=== PATIENT | male | born 1965 | race Caucasian/White ===

== ENCOUNTER → 2016-08-02 | Outpatient (REF) | payer BC ==
[2016-08-02 13:32] LABS: ALBUMIN 3.9 GM/DL (3.2-5.2); ALBUMIN/GLOBULIN RATIO 1.18 (1.00-1.93); ALKALINE PHOSPHATASE 123 U/L (45-117); ALT/SGPT 65 U/L (12-78); ANION GAP 10 MEQ/L (8-16); AST/SGOT 33 U/L (15-37); BILIRUBIN,TOTAL 1.1 MG/DL (0.2-1.0); BLOOD UREA NITROGEN 14 MG/DL (7-18); CALCIUM LEVEL 8.9 MG/DL (8.5-10.1); CARBON DIOXIDE LEVEL 26 MEQ/L (21-32); CHLORIDE LEVEL 107 MEQ/L (98-107); CREATININE FOR GFR 0.94 MG/DL (0.70-1.30); GLOMERULAR FILTRATION RATE > 60.0 (>56); GLUCOSE, FASTING 105 MG/DL (70-105); POTASSIUM SERUM 4.3 MEQ/L (3.5-5.1); SODIUM LEVEL 143 MEQ/L (136-145); TOTAL PROTEIN 7.2 GM/DL (6.4-8.2)
[2016-08-02 13:39] LABS: BASO % 0.3 % (0.0-1.0); EOS # 0.1 K/mm3 (0.0-0.50); EOS % 0.6 % (0.0-3.0); LARGE UNSTAINED CELL # 0.2 K/mm3 (0.0-0.4); LARGE UNSTAINED CELL % 1.3 % (0.0-4.0); LYMPH # 1.9 K/mm3 (1.5-4.5); LYMPH % 14.9 % (24.0-44.0); MEAN CORPUSCULAR HEMOGLOBIN 30.9 pg (27.0-33.0); MEAN CORPUSCULAR HGB CONC 33.6 g/dl (32.0-36.5); MEAN CORPUSCULAR VOLUME 92.1 fl (80.0-96.0); MONO # 0.8 K/mm3 (0.0-0.8); NEUTROPHILS # 8.8 K/mm3 (1.8-7.7); PLATELET COUNT, AUTOMATED 200 k/mm3 (150-450); RED CELL DISTRIBUTION WIDTH 12.4 % (11.5-14.5); WHITE BLOOD COUNT 11.6 K/mm3 (4.0-10.0)
== END ==
LOC: M SFHCPLAZ 08:31
PROVIDERS: ATTEND Family Medicine
DX: I10 Essential (primary) hypertension (principal); R73.01 Impaired fasting glucose; N40.2 Nodular prostate without lower urinary tract symptoms; Z12.5 Encounter for screening for malignant neoplasm of prostate

== ENCOUNTER → 2017-04-22 | Outpatient (REF) | payer BC ==
[2017-04-22 13:17] LABS: ALBUMIN 3.9 GM/DL (3.2-5.2); ALBUMIN/GLOBULIN RATIO 1.18 (1.00-1.93); ALKALINE PHOSPHATASE 109 U/L (45-117); ALT/SGPT 67 U/L (12-78); ANION GAP 8 MEQ/L (8-16); AST/SGOT 24 U/L (7-37); BILIRUBIN,TOTAL 0.9 MG/DL (0.2-1.0); BLOOD UREA NITROGEN 20 MG/DL (7-18); CALCIUM LEVEL 9.2 MG/DL (8.5-10.1); CARBON DIOXIDE LEVEL 27 MEQ/L (21-32); CHLORIDE LEVEL 106 MEQ/L (98-107); CHOLESTEROL LEVEL 162 MG/DL (<200); CREATININE FOR GFR 0.87 MG/DL (0.70-1.30); GLOMERULAR FILTRATION RATE > 60.0 (>56); GLUCOSE, FASTING 93 MG/DL (70-105); POTASSIUM SERUM 4.5 MEQ/L (3.5-5.1); SODIUM LEVEL 141 MEQ/L (136-145); TOTAL PROTEIN 7.2 GM/DL (6.4-8.2); TRIGLYCERIDES LEVEL 251 MG/DL (<150)
== END ==
LOC: M SFHCPLAZ 08:57
PROVIDERS: ATTEND Family Medicine
DX: E78.5 Hyperlipidemia, unspecified (principal); R73.01 Impaired fasting glucose

== ENCOUNTER → 2017-10-11 | Outpatient (REF) | payer BC ==
[2017-10-11 12:16] LABS: APPEARANCE, URINE CLEAR (CLEAR); BACTERIA, URINE AUTO NEGATIVE (NEGATIVE); BILIRUBIN, URINE AUTO NEGATIVE (NEGATIVE); BLOOD, URINE BLOOD 1+ (NEGATIVE); COLOR, URINE YELLOW (YELLOW); GLUCOSE, URINE (UA) AUTO NEGATIVE (NEGATIVE); KETONE, URINE AUTO NEGATIVE (NEGATIVE); LEUKOCYTE ESTERASE, URINE AUTO NEGATIVE (NEGATIVE); MUCUS, URINE SMALL (NEGATIVE); NITRITE, URINE AUTO NEGATIVE (NEGATIVE); PROTEIN, URINE AUTO NEGATIVE (NEGATIVE); RBC, URINE AUTO 1 /HPF (0-3); SPECIFIC GRAVITY URINE AUTO 1.018 (1.002-1.035); SQUAMOUS EPITHELIAL CELL UR AU 0 /HPF (0-6); UROBILINOGEN, URINE AUTO 0.2 mg/dL (0.0-2.0); WBC, URINE AUTO 1 /HPF (0-3)
[2017-10-11 12:56] LABS: PTH INTACT 34.2 PG/ML (18.5-88.0); TOTAL 25(OH) VITAMIN D 45.5 NG/ML (30.0-100.0)
[2017-10-11 13:09] LABS: ALBUMIN/GLOBULIN RATIO 1.25 (1.00-1.93); ALKALINE PHOSPHATASE 86 U/L (45-117); ALT/SGPT 36 U/L (12-78); ANION GAP 10 MEQ/L (8-16); AST/SGOT 14 U/L (7-37); BILIRUBIN,TOTAL 0.7 MG/DL (0.2-1.0); BLOOD UREA NITROGEN 19 MG/DL (7-18); CALCIUM LEVEL 8.8 MG/DL (8.5-10.1); CARBON DIOXIDE LEVEL 24 MEQ/L (21-32); CHLORIDE LEVEL 107 MEQ/L (98-107); CREATININE FOR GFR 0.89 MG/DL (0.70-1.30); GLOMERULAR FILTRATION RATE > 60.0 (>56); GLUCOSE, FASTING 83 MG/DL (70-100); MAGNESIUM LEVEL 2.4 MG/DL (1.8-2.4); POTASSIUM SERUM 4.1 MEQ/L (3.5-5.1); PSA SCREENING 0.45 NG/ML (< 4.0); SODIUM LEVEL 141 MEQ/L (136-145); TOTAL PROTEIN 7.2 GM/DL (6.4-8.2)
[2017-10-11 13:15] LABS: MALB URINE SIEMENS 31.2 MG/L; MAU/CREAT RATIO 22.6 MCG/MG (0.0-30.0)
[2017-10-11 13:35] LABS: ESTIMATED AVERAGE GLUCOSE 120 MG/DL (60-110); HEMOGLOBIN A1c 5.8 %
[2017-10-12 14:10] LABS: INSULIN LEVEL 19.8 uIU/mL (2.6-24.9)
== END ==
LOC: M SFHCPLAZ 11:05
DX: I10 Essential (primary) hypertension (principal); R73.01 Impaired fasting glucose; Z12.5 Encounter for screening for malignant neoplasm of prostate; E55.9 Vitamin D deficiency, unspecified
CPT/HCPCS: 83525

== ENCOUNTER → 2018-04-25 | Outpatient (REF) | payer BC ==
[2018-04-25 12:36] LABS: ALBUMIN/GLOBULIN RATIO 1.43 (1.00-1.93); ALKALINE PHOSPHATASE 89 U/L (45-117); ALT/SGPT 31 U/L (12-78); ANION GAP 7 MEQ/L (8-16); AST/SGOT 15 U/L (7-37); BILIRUBIN,TOTAL 0.7 MG/DL (0.2-1.0); BLOOD UREA NITROGEN 21 MG/DL (7-18); CALCIUM LEVEL 8.9 MG/DL (8.5-10.1); CARBON DIOXIDE LEVEL 26 MEQ/L (21-32); CHLORIDE LEVEL 107 MEQ/L (98-107); CREATININE FOR GFR 0.85 MG/DL (0.70-1.30); GLOMERULAR FILTRATION RATE > 60.0 (>56); GLUCOSE, FASTING 93 MG/DL (70-100); POTASSIUM SERUM 4.3 MEQ/L (3.5-5.1); SODIUM LEVEL 140 MEQ/L (136-145); TOTAL PROTEIN 6.8 GM/DL (6.4-8.2)
[2018-04-25 13:24] LABS: ESTIMATED AVERAGE GLUCOSE 120 MG/DL (60-110); HEMOGLOBIN A1c 5.8 %
[2018-04-26 14:13] LABS: INSULIN LEVEL 15.5 uIU/mL (2.6-24.9)
== END ==
LOC: M SFHCPLAZ 08:53
DX: R73.01 Impaired fasting glucose (principal)
CPT/HCPCS: 83525

== ENCOUNTER → 2018-05-26 | Outpatient (CLI) | payer BC ==
--- NOTE | 2018-05-27 04:26 | REP ---
Clinical: Gallstone. Comparison: 05/17/2016. Technique: Martins scale ultrasound using curved array transducer. Findings: The liver is diffusely increased echogenicity with poor through transmission suggesting fatty infiltration. No focal hepatic lesion identified. The pancreas is incompletely evaluated due to interposed bowel gas but visualized portions appear normal. Gallbladder demonstrates multiple gallstones at the neck of the gallbladder without wall thickening or pericholecystic fluid. No sonographic Reese's sign was elicited. No biliary ductal dilatation is appreciated, and the common bile duct measures 5.6 mm diameter. The right kidney is normal in reniform shape without hydronephrosis and measures 12.2 x 5.4 x 4.2 cm. No ascites. Visualized portions of the abdominal aorta normal. Impression: 1. Gallstones at the gallbladder neck without sonographic evidence for acute cholecystitis. 2. Hepatic steatosis. Electronically Signed by Jered Roque MD 05/27/2018 04:17 A
== END ==
LOC: M RAD 07:26
PROVIDERS: ATTEND Family Medicine
DX: K80.20 Calculus of gallbladder without cholecystitis without obstruction (principal)

== ENCOUNTER → 2018-10-16 | Outpatient (REF) | payer OTHER ==
[2018-10-16 13:05] LABS: APPEARANCE, URINE HAZY (CLEAR); BACTERIA, URINE AUTO 1+ (NEGATIVE); BILIRUBIN, URINE AUTO NEGATIVE (NEGATIVE); BLOOD, URINE BLOOD 1+ (NEGATIVE); COLOR, URINE YELLOW (YELLOW); GLUCOSE, URINE (UA) AUTO NEGATIVE (NEGATIVE); KETONE, URINE AUTO NEGATIVE (NEGATIVE); LEUKOCYTE ESTERASE, URINE AUTO NEGATIVE (NEGATIVE); MUCUS, URINE SMALL (NEGATIVE); NITRITE, URINE AUTO NEGATIVE (NEGATIVE); PROTEIN, URINE AUTO NEGATIVE (NEGATIVE); RBC, URINE AUTO 3 /HPF (0-3); SPECIFIC GRAVITY URINE AUTO 1.015 (1.002-1.035); SQUAMOUS EPITHELIAL CELL UR AU 0 /HPF (0-6); UROBILINOGEN, URINE AUTO 0.2 mg/dL (0.0-2.0); WBC, URINE AUTO 6 /HPF (0-3)
[2018-10-16 13:07] LABS: BASO # 0.1 10^3/uL (0.0-0.2); BASO % 0.6 % (0.0-1.0); EOS # 0.1 10^3/uL (0.0-0.50); EOS % 1.1 % (0.0-3.0); HEMATOCRIT 43.9 % (42.0-52.0); HEMOGLOBIN 14.7 g/dl (13.5-17.5); LYMPH # 2.2 10^3/uL (1.5-4.5); LYMPH % 28.1 % (24.0-44.0); MEAN CORPUSCULAR HEMOGLOBIN 31.5 pg (27.0-33.0); MEAN CORPUSCULAR HGB CONC 33.5 g/dl (32.0-36.5); MONO # 0.7 10^3/uL (0.0-0.8); MONO % 8.2 % (0.0-5.0); NEUTROPHILS # 4.9 10^3/uL (1.8-7.7); NEUTROPHILS % 61.5 % (36.0-66.0); PLATELET COUNT, AUTOMATED 210 10^3/uL (150-450); RED BLOOD COUNT 4.67 10^6/uL (4.30-6.10); WHITE BLOOD COUNT 7.9 10^3/uL (4.0-10.0)
[2018-10-16 13:21] LABS: HEMOGLOBIN A1c 5.7 %
[2018-10-16 13:45] LABS: ALT/SGPT 78 U/L (12-78); BILIRUBIN,TOTAL 0.7 MG/DL (0.2-1.0); BLOOD UREA NITROGEN 17 MG/DL (7-18); CALCIUM LEVEL 9.3 MG/DL (8.5-10.1); CARBON DIOXIDE LEVEL 25 MEQ/L (21-32); CHLORIDE LEVEL 107 MEQ/L (98-107); CHOLESTEROL LEVEL 174 MG/DL (<200); CHOLESTEROL RISK RATIO 3.782 (<5); CREATININE FOR GFR 0.84 MG/DL (0.70-1.30); FREE T4 0.95 NG/DL (0.76-1.46); GLOMERULAR FILTRATION RATE > 60.0 (>56); GLUCOSE, FASTING 91 MG/DL (70-100); HDL CHOLESTEROL 46 MG/DL (>40); LDL CHOLESTEROL 82 MG/DL (<100); NON-HDL-C 128 MG/DL; POTASSIUM SERUM 3.9 MEQ/L (3.5-5.1); SODIUM LEVEL 140 MEQ/L (136-145); TOTAL PROTEIN 6.9 GM/DL (6.4-8.2); TRIGLYCERIDES LEVEL 230 MG/DL (<150)
[2018-10-16 14:03] LABS: MALB URINE SIEMENS 22.1 MG/L; MAU/CREAT RATIO 19.5 MCG/MG (0.0-30.0)
== END ==
LOC: M LABSMT 08:34
PROVIDERS: ATTEND Nurse Practitioner Women's Health
DX: Z12.5 Encounter for screening for malignant neoplasm of prostate (principal); I10 Essential (primary) hypertension; E78.5 Hyperlipidemia, unspecified; R73.01 Impaired fasting glucose
CPT/HCPCS: 36415; 80053; 80061; 81001; 82043; 83036; 84439; 84443; 85025; G0103

== ENCOUNTER → 2018-11-03 | Outpatient (CLI) | payer OTHER ==
--- NOTE | 2018-11-03 16:28 | REP ---
Thoracic spine three views: Vertebral body heights and alignment are normal. There is moderate degenerative disc disease throughout the thoracic spine. The pedicles are unremarkable. Impression: Moderate multilevel degenerative disc disease. Electronically Signed by Clarence Regalado MD 11/03/2018 04:20 P
--- NOTE | 2018-11-03 16:34 | REP ---
Lumbar spine seven views, including flexion and extension views: There is mild scoliosis convex right. 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 There is partial sacralization of the L6 segment with a pseudoarticulation of the left transverse process. The liver. There is spina bifida occulta of L6. Vertebral body heights and alignment are normal. There is no spondylolysis. There is no spondylolisthesis. There is no listhesis on the flexion and extension views. There is mild degenerative disc disease at L1-2 and at L5-6. The disc spaces are otherwise unremarkable. There are abdominal right upper quadrant calcifications, likely gallbladder calculi. 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 There is partial sacralization of the L6 segment as described. Spina bifida occulta of L6. Mild scoliosis convex right. Mild degenerative disc disease at L1-2 and L5-6. Right upper quadrant abdominal calcifications, likely gallbladder calculi. Electronically Signed by Clarence Regalado MD 11/03/2018 04:26 P
== END ==
LOC: M RAD 15:32
PROVIDERS: ATTEND Family Medicine
DX: Q05.7 Lumbar spina bifida without hydrocephalus (principal); M51.36 Other intervertebral disc degeneration, lumbar region; M51.34 Other intervertebral disc degeneration, thoracic region

== ENCOUNTER → 2019-04-24 | Outpatient (REF) | payer OTHER ==
[2019-04-24 11:39] LABS: BASO % 0.5 % (0.0-1.0); EOS # 0.1 10^3/uL (0.0-0.5); EOS % 1.5 % (0.0-3.0); HEMATOCRIT 45.2 % (42.0-52.0); HEMOGLOBIN 15.2 g/dl (13.5-17.5); MEAN CORPUSCULAR HEMOGLOBIN 31.3 pg (27.0-33.0); MEAN CORPUSCULAR HGB CONC 33.6 g/dl (32.0-36.5); MONO # 0.5 10^3/uL (0.0-0.8); MONO % 6.3 % (0.0-5.0); NEUTROPHILS # 4.8 10^3/uL (1.5-8.5); NEUTROPHILS % 64.3 % (36.0-66.0); PLATELET COUNT, AUTOMATED 211 10^3/uL (150-450); RED BLOOD COUNT 4.86 10^6/uL (4.30-6.10); WHITE BLOOD COUNT 7.5 10^3/uL (4.0-10.0)
[2019-04-24 11:52] LABS: HEMOGLOBIN A1c 5.4 %
[2019-04-24 12:29] LABS: ALT/SGPT 53 U/L (12-78); BILIRUBIN,TOTAL 0.7 MG/DL (0.2-1.0); BLOOD UREA NITROGEN 17 MG/DL (7-18); CALCIUM LEVEL 9.1 MG/DL (8.5-10.1); CARBON DIOXIDE LEVEL 26 MEQ/L (21-32); CHLORIDE LEVEL 108 MEQ/L (98-107); CREATININE FOR GFR 0.88 MG/DL (0.70-1.30); GLOMERULAR FILTRATION RATE > 60.0 (>56); GLUCOSE, FASTING 90 MG/DL (70-100); POTASSIUM SERUM 4.3 MEQ/L (3.5-5.1); SODIUM LEVEL 143 MEQ/L (136-145); TOTAL PROTEIN 7.1 GM/DL (6.4-8.2)
== END ==
LOC: M SFHCPLAZ 08:21
PROVIDERS: ATTEND Family Medicine
DX: Z12.5 Encounter for screening for malignant neoplasm of prostate (principal); I10 Essential (primary) hypertension; R73.01 Impaired fasting glucose
CPT/HCPCS: 36415; 80053; 83036; 83525; 85025; G0103

== ENCOUNTER → 2019-10-14 | Outpatient (REF) | payer OTHER ==
[2019-10-14 10:36] LABS: APPEARANCE, URINE CLOUDY (CLEAR); BACTERIA, URINE AUTO 1+ (NEGATIVE); BILIRUBIN, URINE AUTO NEGATIVE (NEGATIVE); BLOOD, URINE BLOOD 1+ (NEGATIVE); COLOR, URINE YELLOW (YELLOW); GLUCOSE, URINE (UA) AUTO NEGATIVE (NEGATIVE); KETONE, URINE AUTO NEGATIVE (NEGATIVE); LEUKOCYTE ESTERASE, URINE AUTO 3+ (NEGATIVE); MUCUS, URINE SMALL (NEGATIVE); NITRITE, URINE AUTO NEGATIVE (NEGATIVE); PROTEIN, URINE AUTO NEGATIVE (NEGATIVE); RBC, URINE AUTO 9 /HPF (0-3); SPECIFIC GRAVITY URINE AUTO 1.019 (1.002-1.035); SQUAMOUS EPITHELIAL CELL UR AU 0 /HPF (0-6); UROBILINOGEN, URINE AUTO 0.2 mg/dL (0.0-2.0); WBC, URINE AUTO 102 /HPF (0-3)
[2019-10-14 10:38] LABS: BASO % 0.5 % (0.0-1.0); EOS # 0.1 10^3/uL (0.0-0.5); EOS % 1.2 % (0.0-3.0); HEMATOCRIT 43.4 % (42.0-52.0); HEMOGLOBIN 14.5 g/dl (13.5-17.5); LYMPH # 2.1 10^3/uL (1.5-5.0); LYMPH % 27.7 % (24.0-44.0); MEAN CORPUSCULAR HEMOGLOBIN 30.7 pg (27.0-33.0); MEAN CORPUSCULAR HGB CONC 33.4 g/dl (32.0-36.5); MEAN CORPUSCULAR VOLUME 91.8 fl (80.0-96.0); MONO # 0.5 10^3/uL (0.0-0.8); NEUTROPHILS # 4.9 10^3/uL (1.5-8.5); NEUTROPHILS % 63.3 % (36.0-66.0); PLATELET COUNT, AUTOMATED 239 10^3/uL (150-450); RED BLOOD COUNT 4.73 10^6/uL (4.30-6.10); WHITE BLOOD COUNT 7.7 10^3/uL (4.0-10.0)
[2019-10-14 10:43] LABS: ALT/SGPT 49 U/L (12-78); BILIRUBIN,TOTAL 0.7 MG/DL (0.2-1.0); BLOOD UREA NITROGEN 17 MG/DL (7-18); CALCIUM LEVEL 8.8 MG/DL (8.5-10.1); CARBON DIOXIDE LEVEL 25 MEQ/L (21-32); CHLORIDE LEVEL 110 MEQ/L (98-107); CHOLESTEROL LEVEL 166 MG/DL (<200); CHOLESTEROL RISK RATIO 4.742 (<5); CREATININE FOR GFR 0.89 MG/DL (0.70-1.30); GLOMERULAR FILTRATION RATE > 60.0 (>56); GLUCOSE, FASTING 99 MG/DL (70-100); HDL CHOLESTEROL 35 MG/DL (>40); LDL CHOLESTEROL 55 MG/DL (<100); NON-HDL-C 131 MG/DL; POTASSIUM SERUM 4.2 MEQ/L (3.5-5.1); SODIUM LEVEL 142 MEQ/L (136-145); TRIGLYCERIDES LEVEL 381 MG/DL (<150)
[2019-10-14 10:51] LABS: VITAMIN B12 LEVEL > 2000 PG/ML (247-911)
[2019-10-14 11:27] LABS: MALB URINE SIEMENS 51.3 MG/L; MAU/CREAT RATIO 20.3 MCG/MG (0.0-30.0)
== END ==
LOC: M PLALAB 08:28
PROVIDERS: ATTEND Family Medicine
DX: I10 Essential (primary) hypertension (principal); R73.01 Impaired fasting glucose; E78.5 Hyperlipidemia, unspecified

== ENCOUNTER → 2020-04-22 | Outpatient (REF) | payer OTHER ==
[2020-04-22 11:16] LABS: BASO # 0.1 10^3/uL (0.0-0.2); BASO % 0.8 % (0.0-1.0); EOS # 0.1 10^3/uL (0.0-0.5); EOS % 1.4 % (0.0-3.0); HEMATOCRIT 46.4 % (42.0-52.0); HEMOGLOBIN 15.6 g/dl (13.5-17.5); LYMPH # 2.3 10^3/uL (1.5-5.0); LYMPH % 28.2 % (24.0-44.0); MEAN CORPUSCULAR HEMOGLOBIN 31.5 pg (27.0-33.0); MEAN CORPUSCULAR HGB CONC 33.6 g/dl (32.0-36.5); MEAN CORPUSCULAR VOLUME 93.5 fl (80.0-96.0); MONO # 0.5 10^3/uL (0.0-0.8); MONO % 6.1 % (0.0-5.0); NEUTROPHILS # 5.2 10^3/uL (1.5-8.5); NEUTROPHILS % 63.1 % (36.0-66.0); PLATELET COUNT, AUTOMATED 253 10^3/uL (150-450); RED BLOOD COUNT 4.96 10^6/uL (4.30-6.10); WHITE BLOOD COUNT 8.3 10^3/uL (4.0-10.0)
[2020-04-22 11:46] LABS: ALT/SGPT 39 U/L (12-78); BILIRUBIN,TOTAL 0.9 MG/DL (0.2-1.0); BLOOD UREA NITROGEN 16 MG/DL (7-18); CALCIUM LEVEL 9.2 MG/DL (8.5-10.1); CARBON DIOXIDE LEVEL 28 MEQ/L (21-32); CHLORIDE LEVEL 108 MEQ/L (98-107); CHOLESTEROL LEVEL 168 MG/DL (<200); CHOLESTEROL RISK RATIO 3.906 (<5); CREATININE FOR GFR 0.81 MG/DL (0.70-1.30); GLOMERULAR FILTRATION RATE > 60.0 (>56); GLUCOSE, FASTING 90 MG/DL (70-100); HDL CHOLESTEROL 43 MG/DL (>40); LDL CHOLESTEROL 73 MG/DL (<100); NON-HDL-C 125 MG/DL; POTASSIUM SERUM 4.6 MEQ/L (3.5-5.1); SODIUM LEVEL 141 MEQ/L (136-145); TOTAL PROTEIN 7.2 GM/DL (6.4-8.2); TRIGLYCERIDES LEVEL 261 MG/DL (<150)
[2020-04-22 12:18] LABS: HEMOGLOBIN A1c 5.5 %
== END ==
LOC: M SFHCPLAZ 09:02
PROVIDERS: ATTEND Family Medicine
DX: R73.01 Impaired fasting glucose (principal); I10 Essential (primary) hypertension; Z12.5 Encounter for screening for malignant neoplasm of prostate

== ENCOUNTER → 2020-04-28 | Outpatient (CLI) | payer SELFPAY | LOC: M LABSMTC 12:55 | PROVIDERS: ATTEND Pediatrics | DX: Z20.828 Contact with and (suspected) exposure to other viral communicable diseases (principal) ==

== ENCOUNTER → 2021-01-30 | Outpatient (CLI) | payer OTHER | LOC: M LABSMTC 10:15 | PROVIDERS: ATTEND Anesthesiology | DX: Z01.812 Encounter for preprocedural laboratory examination (principal); Z20.822 Contact with and (suspected) exposure to COVID-19 ==

== ENCOUNTER 2021-02-03 07:36 | Day surgery (SDC) | payer OTHER ==
[~2021-02-03] VITALS: Ht 170.2 cm; Wt 69.9 kg
[~2021-02-03 07:36] MED LIST: ATEN25TA PO; CYAN500T14 PO; D31000TA2 PO; IRBE75TA4 PO; NS 1,000 ML IV ONE; PARO10TA3 PO; QC F0.52 PO; SIMV40TA20 PO
[2021-02-03] MEDS ORDERED: atenoloL 25 MG TAB PO STA (08:52)
[2021-02-03] MEDS ORDERED: propofoL 200 MG/20 ML VIAL As Ordered ONE (09:51)
[2021-02-03] MEDS ORDERED: LIDOCAINE 2% 100MG/5ML SDV (FOR ANES.) As Ordered ONE (09:51)
--- NOTE | 2021-02-03 09:53 | ROOR ---
Patient Name: Geremias Chang Procedure Date: 02/03/2021 9:26 AM Date of : 1965 Age: 55 Room: [facility] Gender: Male Note Status: Finalized Procedure: Colonoscopy Indications: Screening for colorectal malignant neoplasm Providers: Kurt Boswell MD Referring MD: Glenn Lazo MD Requesting Provider: Medicines: Monitored Anesthesia Care Complications: No immediate complications. Procedure: Pre-Anesthesia Assessment: - The heart rate, respiratory rate, oxygen saturations, blood pressure, adequacy of pulmonary ventilation, and response to care were monitored throughout the procedure. The Colonoscope was introduced through the anus and advanced to the terminal ileum, with identification of the appendiceal orifice and IC valve. The colonoscopy was performed without difficulty. The patient tolerated the procedure well. The quality of the bowel preparation was good. Findings: The perianal and digital rectal examinations were normal. Mild sigmoid diverticulosis and small internal hemorrhoids. The exam was otherwise without abnormality on direct and retroflexion views. Impression: - Mild sigmoid diverticulosis and small internal hemorrhoids. - The colon is otherwise normal on direct and retroflexion views. - No specimens collected. Recommendation: - Repeat colonoscopy in 10 years for screening purposes. Procedure Code(s): --- Professional --- 04997, Colonoscopy, flexible; diagnostic, including collection of specimen(s) by brushing or washing, when performed (separate procedure) Diagnosis Code(s): --- Professional --- Z12.11, Encounter for screening for malignant neoplasm of colon CPT copyright 2019 [employer]. All rights reserved. The codes documented in this report are preliminary and upon hairmasters manager review may be revised to meet current compliance requirements. Kurt Boswell MD Kurt Boswell MD 02/03/2021 9:53:01 AM Electronically signed by Kurt Boswell MD Number of Addenda: 0 Note Initiated On: 02/03/2021 9:26 AM Estimated Blood Loss: Estimated blood loss: none.
[2021-02-03 10:15] VITALS: BP 141/88
== END 2021-02-03 11:09 | disposition home or self-care (01) ==
LOC: M OPP 07:36
PROVIDERS: ATTEND Internal Medicine Gastroenterology
DX: Z12.11 Encounter for screening for malignant neoplasm of colon (principal); K57.30 Diverticulosis of large intestine without perforation or abscess without bleeding; K64.8 Other hemorrhoids; Z79.899 Other long term (current) drug therapy; Z88.2 Allergy status to sulfonamides

== ENCOUNTER → 2021-02-10 | Outpatient (CLI) | payer OTHER ==
[~2021-02-10] MED LIST changes: -NS 1,000 ML IV ONE
[2021-02-10 10:56] LABS: ALBUMIN 3.8 GM/DL (3.2-5.2); ALT/SGPT 28 U/L (12-78); BILIRUBIN,TOTAL 0.6 MG/DL (0.2-1.0); BLOOD UREA NITROGEN 17 MG/DL (7-18); CARBON DIOXIDE LEVEL 25 MEQ/L (21-32); CHLORIDE LEVEL 109 MEQ/L (98-107); FREE T4 0.92 NG/DL (0.76-1.46); GLOMERULAR FILTRATION RATE > 60.0 (>56); GLUCOSE, FASTING 101 MG/DL (70-100); NT-PRO BNP 29 PG/ML (<125); POTASSIUM SERUM 3.9 MEQ/L (3.5-5.1); SODIUM LEVEL 141 MEQ/L (136-145); TOTAL PROTEIN 7.2 GM/DL (6.4-8.2)
[2021-02-10 10:57] LABS: VITAMIN B12 LEVEL 1640 PG/ML (247-911)
[2021-02-10 11:34] LABS: HEMOGLOBIN A1c 5.4 %
[2021-02-13 11:24] LABS: ALBUMIN 4.48 GM/DL (3.29-5.55); ALBUMIN % 62.2 % (55.8-66.1); ALPHA-1-GLOBULIN % 3.7 % (2.9-4.9); ALPHA-1-GLOBULINS 0.27 GM/DL (0.17-0.41); ALPHA-2-GLOBULINS 0.66 GM/DL (0.42-0.99); ALPHA-2-GLOBULINS % 9.2 % (7.1-11.8); BETA-1-GLOBULINS 0.45 GM/DL (0.28-0.60); BETA-1-GLOBULINS % 6.3 % (4.7-7.2); BETA-2-GLOBULINS 0.55 GM/DL (0.19-0.55); BETA-2-GLOBULINS % 7.6 % (3.2-6.5); GAMMA GLOBULINS 0.79 GM/DL (0.65-1.58)
== END ==
LOC: M PLALAB 08:06
PROVIDERS: ATTEND Family Medicine
DX: R73.01 Impaired fasting glucose (principal); D75.89 Other specified diseases of blood and blood-forming organs; E78.5 Hyperlipidemia, unspecified

== ENCOUNTER → 2021-10-04 | Outpatient (CLI) | payer OTHER ==
[~2021-10-04] MED LIST changes: -D31000TA2 PO; +VITA100093 PO
[2021-10-04 13:36] LABS: BASO # 0.1 10^3/uL (0.0-0.2); BASO % 0.8 % (0.0-1.0); EOS # 0.1 10^3/uL (0.0-0.5); EOS % 1.7 % (0.0-3.0); HEMOGLOBIN 14.8 g/dl (13.5-17.5); LYMPH # 2.2 10^3/uL (1.5-5.0); LYMPH % 29.3 % (24.0-44.0); MEAN CORPUSCULAR HEMOGLOBIN 31.4 pg (27.0-33.0); MEAN CORPUSCULAR HGB CONC 33.6 g/dl (32.0-36.5); MEAN CORPUSCULAR VOLUME 93.2 fl (80.0-96.0); MONO # 0.6 10^3/uL (0.0-0.8); MONO % 7.3 % (2.0-8.0); NEUTROPHILS # 4.6 10^3/uL (1.5-8.5); NEUTROPHILS % 60.5 % (36.0-66.0); PLATELET COUNT, AUTOMATED 230 10^3/uL (150-450); RED BLOOD COUNT 4.72 10^6/uL (4.30-6.10); WHITE BLOOD COUNT 7.7 10^3/uL (4.0-10.0)
[2021-10-04 13:50] LABS: HEMOGLOBIN A1c 5.6 %
[2021-10-04 13:57] LABS: ALT/SGPT 35 U/L (12-78); BLOOD UREA NITROGEN 13 MG/DL (7-18); CALCIUM LEVEL 9.1 MG/DL (8.5-10.1); CARBON DIOXIDE LEVEL 27 MEQ/L (21-32); CHLORIDE LEVEL 109 MEQ/L (98-107); CHOLESTEROL LEVEL 155 MG/DL (<200); CREATININE FOR GFR 0.84 MG/DL (0.70-1.30); FERRITIN 162 NG/ML (26-388); GLOMERULAR FILTRATION RATE > 60.0 (>56); GLUCOSE, FASTING 92 MG/DL (70-100); HDL CHOLESTEROL 42 MG/DL (>40); LDL CHOLESTEROL 72 MG/DL (<100); NON-HDL-C 113 MG/DL; POTASSIUM SERUM 4.2 MEQ/L (3.5-5.1); SODIUM LEVEL 141 MEQ/L (136-145); TOTAL PROTEIN 6.9 GM/DL (6.4-8.2); TRIGLYCERIDES LEVEL 204 MG/DL (<150)
[2021-10-04 14:00] LABS: VITAMIN B12 LEVEL > 2000 PG/ML (247-911)
[2021-10-05 05:08] LABS: APOLIPOPROTEIN B/A-1 RATIO 0.7 ratio (0.0-0.7)
== END ==
LOC: M PLALAB 09:22
PROVIDERS: ATTEND Family Medicine
DX: R73.01 Impaired fasting glucose (principal); I10 Essential (primary) hypertension; Z12.5 Encounter for screening for malignant neoplasm of prostate; D75.89 Other specified diseases of blood and blood-forming organs
CPT/HCPCS: 36415; 80053; 80061; 82172; 82607; 82728; 83036; 85025; G0103

== ENCOUNTER → 2021-10-13 | Outpatient (REF) | payer OTHER | LOC: M SFHCPLAZ 13:07 | PROVIDERS: ATTEND Family Medicine | DX: D22.62 Melanocytic nevi of left upper limb, including shoulder (principal) ==

== ENCOUNTER → 2021-11-10 | Outpatient (CLI) | payer OTHER | LOC: M PLARAD 13:33 | PROVIDERS: ATTEND Family Medicine | DX: N43.3 Hydrocele, unspecified (principal); N48.89 Other specified disorders of penis ==

== ENCOUNTER → 2022-01-12 | Outpatient (CLI) | payer OTHER ==
[~2022-01-12] MED LIST changes: +TAMS1CAP17 PO
[2022-01-12 12:59] LABS: APPEARANCE, URINE MANUAL CLEAR (CLEAR); BILIRUBIN, URINE MANUAL NEGATIVE (NEGATIVE); BLOOD URINE MANUAL NEGATIVE (NEGATIVE); COLOR, URINE MANUAL YELLOW (YELLOW); GLUCOSE, URINE (UA) MANUAL NEGATIVE (NEGATIVE); HEMATOCRIT 43.2 % (42.0-52.0); HEMOGLOBIN 14.8 g/dl (13.5-17.5); KETONE, URINE MANUAL NEGATIVE (NEGATIVE); LEUKOCYTE ESTERASE, URINE MAN NEGATIVE (NEGATIVE); MEAN CORPUSCULAR HEMOGLOBIN 31.6 pg (27.0-33.0); MEAN CORPUSCULAR HGB CONC 34.3 g/dl (32.0-36.5); MEAN CORPUSCULAR VOLUME 92.3 fl (80.0-96.0); NITRITE, URINE MANUAL NEGATIVE (NEGATIVE); PLATELET COUNT, AUTOMATED 225 10^3/uL (150-450); PROTEIN, URINE MANUAL NEGATIVE (NEGATIVE); RED BLOOD COUNT 4.68 10^6/uL (4.30-6.10); SPECIFIC GRAVITY,URINE MANUAL 1.025 (1.002-1.035); UROBILINOGEN, URINE MANUAL NORMAL (NORMAL); WHITE BLOOD COUNT 10.4 10^3/uL (4.0-10.0)
[2022-01-12 13:19] LABS: INR 0.95
[2022-01-12 13:44] LABS: ALT/SGPT 41 U/L (12-78); BLOOD UREA NITROGEN 17 MG/DL (7-18); CALCIUM LEVEL 9.5 MG/DL (8.5-10.1); CARBON DIOXIDE LEVEL 25 MEQ/L (21-32); CHLORIDE LEVEL 107 MEQ/L (98-107); CREATININE FOR GFR 0.86 MG/DL (0.70-1.30); GLOMERULAR FILTRATION RATE > 60.0 (>56); GLUCOSE, FASTING 98 MG/DL (70-100); SODIUM LEVEL 138 MEQ/L (136-145); TOTAL PROTEIN 7.3 GM/DL (6.4-8.2)
== END ==
LOC: M PLAIMG 09:58
PROVIDERS: ATTEND Urology
DX: Z80.42 Family history of malignant neoplasm of prostate (principal)

== ENCOUNTER → 2022-01-23 | Outpatient (CLI) | payer OTHER | LOC: M LABSMTC 09:13 | PROVIDERS: ATTEND Anesthesiology | DX: Z01.818 Encounter for other preprocedural examination (principal); Z11.52 Encounter for screening for COVID-19 ==

== ENCOUNTER 2022-01-26 07:33 | Day surgery (SDC) | payer OTHER ==
[~2022-01-26] VITALS: Ht 170.2 cm; Wt 71.7 kg
[~2022-01-26 07:33] MED LIST changes: +ceFAZolin SOD 2 GM in IV 1 EA IV ONE
[2022-01-26] MEDS ORDERED: LR 1,000 ML IV SCH ×2 (08:10→09:35)
[2022-01-26] MEDS ORDERED: fentaNYL 100 MCG/2 ML INJECTION As Ordered ONE (09:02)
[2022-01-26] MEDS ORDERED: propofoL 200 MG/20 ML VIAL As Ordered ONE (09:03)
[2022-01-26] MEDS ORDERED: LIDOCAINE 2% 100MG/5ML SDV (FOR ANES.) As Ordered ONE (09:03)
[2022-01-26] MEDS ORDERED: MIDAZOLAM INJ 2MG/2ML VIAL (J2250 PER 1MG) As Ordered ONE (09:05)
[2022-01-26] MEDS ORDERED: ONDANSETRON 4MG 2ML VIAL As Ordered ONE (09:20)
[2022-01-26] MEDS ORDERED: KETOROLAC 60MG 2ML VIAL As Ordered ONE (09:20)
[2022-01-26] MEDS ORDERED: dexameTHASONE 4 MG/ML 1ML VIAL (J1100 PER 1MG) As Ordered ONE (09:20)
[2022-01-26] MEDS ORDERED: fentaNYL 100 MCG/2 ML INJECTION IV PRN (09:35)
[2022-01-26] MEDS ORDERED: ONDANSETRON 4MG 2ML VIAL IV PRN (09:35)
[2022-01-26] MEDS ORDERED: oxyCODONE 5MG TAB PO PRN (09:35)
[2022-01-26] MEDS ORDERED: PYRI1TAB5 PO (09:39)
[2022-01-26] MEDS ORDERED: OXYB5TAB10 PO (09:39)
[2022-01-26] MEDS ORDERED: MACR100C43 PO (09:39)
[2022-01-26 11:49] VITALS: BP 137/81
== END 2022-01-26 12:43 | disposition home or self-care (01) ==
LOC: M SDC 07:33
PROVIDERS: ATTEND Urology
DX: N35.919 Unspecified urethral stricture, male, unspecified site (principal); I10 Essential (primary) hypertension; E78.5 Hyperlipidemia, unspecified; K21.9 Gastro-esophageal reflux disease without esophagitis; N40.0 Benign prostatic hyperplasia without lower urinary tract symptoms; Z79.899 Other long term (current) drug therapy; Z88.2 Allergy status to sulfonamides
CPT/HCPCS: 52276; C1769; J0690; J1100; J1885; J2250; J2405; J3010

== ENCOUNTER → 2022-09-21 | Outpatient (CLI) | payer BC, OTHER ==
[~2022-09-21] MED LIST changes: +MACR100C43 PO; +OXYB5TAB10 PO; +PYRI1TAB5 PO; -ceFAZolin SOD 2 GM in IV 1 EA IV ONE
[2022-09-21 10:40] LABS: BASO # 0.1 10^3/uL (0.0-0.2); BASO % 0.6 % (0.0-1.0); EOS # 0.1 10^3/uL (0.0-0.5); EOS % 1.2 % (0.0-3.0); HEMATOCRIT 48.6 % (42.0-52.0); HEMOGLOBIN 15.9 g/dl (13.5-17.5); LYMPH # 2.4 10^3/uL (1.5-5.0); LYMPH % 27.5 % (24.0-44.0); MEAN CORPUSCULAR HEMOGLOBIN 30.9 pg (27.0-33.0); MEAN CORPUSCULAR HGB CONC 32.7 g/dl (32.0-36.5); MEAN CORPUSCULAR VOLUME 94.4 fl (80.0-96.0); MONO # 0.7 10^3/uL (0.0-0.8); MONO % 7.4 % (2.0-8.0); NEUTROPHILS # 5.6 10^3/uL (1.5-8.5); NEUTROPHILS % 62.7 % (36.0-66.0); PLATELET COUNT, AUTOMATED 246 10^3/uL (150-450); RED BLOOD COUNT 5.15 10^6/uL (4.30-6.10); WHITE BLOOD COUNT 8.8 10^3/uL (4.0-10.0)
[2022-09-21 11:08] LABS: HEMOGLOBIN A1c 5.4 % (4.0-6.0)
[2022-09-21 11:12] LABS: ALBUMIN 4.4 G/DL (3.2-5.2); ALKALINE PHOSPHATASE 98 U/L (46-116); ALT/SGPT 22 U/L (7.0-40); AST/SGOT 14 U/L (<34); BILIRUBIN,TOTAL 1.1 MG/DL (0.3-1.2); BLOOD UREA NITROGEN 15 MG/DL (9-23); CALCIUM LEVEL 9.4 MG/DL (8.5-10.1); CARBON DIOXIDE LEVEL 26 MMOL/L (20-31); CHLORIDE LEVEL 107 MMOL/L (98-107); CHOLESTEROL LEVEL 155 MG/DL (<200); CHOLESTEROL RISK RATIO 3.24 (<5); CREATININE FOR GFR 0.87 MG/DL (0.70-1.30); GLOMERULAR FILTRATION RATE > 60.0 (>56); GLUCOSE, FASTING 96 MG/DL (60-100); HDL CHOLESTEROL 47.8 MG/DL (>40); NON-HDL-C 107.2 MG/DL; SODIUM LEVEL 139 MMOL/L (136-145); TOTAL PROTEIN 7.3 G/DL (5.7-8.2); TRIGLYCERIDES LEVEL 116 MG/DL (<150)
[2022-09-24 18:09] LABS: APOLIPOPROTEIN B/A-1 RATIO 0.6 ratio (0.0-0.7)
== END ==
LOC: M PLALAB 08:24
PROVIDERS: ATTEND Family Medicine
DX: D75.89 Other specified diseases of blood and blood-forming organs (principal); R73.01 Impaired fasting glucose; E78.5 Hyperlipidemia, unspecified; I10 Essential (primary) hypertension

== ENCOUNTER → 2022-12-05 | Outpatient (CLI) | payer BC ==
[2022-12-06 12:11] LABS: TESTOSTERONE FREE (DIRECT) 14.2 pg/mL (7.2-24.0)
== END ==
LOC: M PLALAB 09:12
PROVIDERS: ATTEND Physician Assistant
DX: Z12.5 Encounter for screening for malignant neoplasm of prostate (principal); N52.1 Erectile dysfunction due to diseases classified elsewhere
CPT/HCPCS: 36415; 84402; 84403; G0103

== ENCOUNTER → 2023-02-28 | Outpatient (REF) | payer BC ==
[~2023-02-28] MED LIST changes: -OXYB5TAB10 PO; +OXYB5TAB11 PO
== END ==
LOC: M SFHCPLAZ 15:01
PROVIDERS: ATTEND Family Medicine
DX: Z53.9 Procedure and treatment not carried out, unspecified reason (principal); D75.89 Other specified diseases of blood and blood-forming organs; R73.01 Impaired fasting glucose

== ENCOUNTER → 2023-03-26 | Outpatient (REF) | payer BC | LOC: M SFHCPLAZ 13:07 | PROVIDERS: ATTEND Family Medicine | DX: Z53.9 Procedure and treatment not carried out, unspecified reason (principal) ==

== ENCOUNTER → 2023-03-26 | Outpatient (CLI) | payer BC | LOC: M RAD 09:32 | PROVIDERS: ATTEND Family Medicine | DX: M17.0 Bilateral primary osteoarthritis of knee (principal) ==

== ENCOUNTER → 2023-06-24 | Outpatient (CLI) | payer BC ==
[~2023-06-24] MED LIST changes: +IRBE75TA11 PO; -IRBE75TA4 PO
[2023-06-24 12:53] LABS: BASO # 0.1 10^3/uL (0.0-0.2); BASO % 0.6 % (0.0-1.0); EOS # 0.1 10^3/uL (0.0-0.5); EOS % 1.6 % (0.0-3.0); HEMATOCRIT 44.7 % (42.0-52.0); HEMOGLOBIN 15.1 g/dl (13.5-17.5); LYMPH % 24.8 % (24.0-44.0); MEAN CORPUSCULAR HEMOGLOBIN 31.6 pg (27.0-33.0); MEAN CORPUSCULAR HGB CONC 33.8 g/dl (32.0-36.5); MEAN CORPUSCULAR VOLUME 93.5 fl (80.0-96.0); MONO # 0.6 10^3/uL (0.0-0.8); MONO % 7.4 % (2.0-8.0); NEUTROPHILS # 5.3 10^3/uL (1.5-8.5); NEUTROPHILS % 65.4 % (36.0-66.0); PLATELET COUNT, AUTOMATED 217 10^3/uL (150-450); RED BLOOD COUNT 4.78 10^6/uL (4.30-6.10); WHITE BLOOD COUNT 8.1 10^3/uL (4.0-10.0)
[2023-06-24 13:23] LABS: ALKALINE PHOSPHATASE 81 U/L (46-116); ALT/SGPT 25 U/L (7.0-40); AST/SGOT 12 U/L (<34); BILIRUBIN,TOTAL 1.3 MG/DL (0.3-1.2); BLOOD UREA NITROGEN 19 MG/DL (9-23); CALCIUM LEVEL 9.3 MG/DL (8.5-10.1); CARBON DIOXIDE LEVEL 28 MMOL/L (20-31); CHLORIDE LEVEL 105 MMOL/L (98-107); CHOLESTEROL LEVEL 154 MG/DL (<200); CHOLESTEROL RISK RATIO 3.46 (<5); CREATININE FOR GFR 0.77 MG/DL (0.70-1.30); GLOMERULAR FILTRATION RATE > 60.0 (>56); GLUCOSE, FASTING 89 MG/DL (60-100); HDL CHOLESTEROL 44.4 MG/DL (>40); LDL CHOLESTEROL 77.8 MG/DL (<100); NON-HDL-C 109.6 MG/DL; SODIUM LEVEL 139 MMOL/L (136-145); TRIGLYCERIDES LEVEL 159 MG/DL (<150)
[2023-06-24 13:24] LABS: VITAMIN B12 LEVEL 475 PG/ML (211-911)
[2023-06-24 13:40] LABS: HEMOGLOBIN A1c 5.3 % (4.0-6.0)
== END ==
LOC: M PLAIMG 11:01
PROVIDERS: ATTEND Family Medicine
DX: R00.2 Palpitations (principal)

== ENCOUNTER → 2023-07-22 | Outpatient (CLI) | payer BC ==
[~2023-07-22] MED LIST changes: -OXYB5TAB11 PO; +OXYB5TAB14 PO
[2023-07-22 14:46] LABS: ALBUMIN 4.1 G/DL (3.2-5.2); BILIRUBIN,DIRECT 0.3 MG/DL (<0.4); BILIRUBIN,TOTAL 0.9 MG/DL (0.3-1.2); TOTAL PROTEIN 6.8 G/DL (5.7-8.2)
== END ==
LOC: M PLALAB 08:46
PROVIDERS: ATTEND Family Medicine
DX: K76.0 Fatty (change of) liver, not elsewhere classified (principal)

== ENCOUNTER → 2023-07-22 | Outpatient (CLI) | payer BC | LOC: M RAD 07:30 | PROVIDERS: ATTEND Family Medicine | DX: K76.0 Fatty (change of) liver, not elsewhere classified (principal) ==

== ENCOUNTER → 2024-01-27 | Outpatient (CLI) | payer BC ==
[2024-01-27 11:52] LABS: BASO # 0.1 10^3/uL (0.0-0.2); BASO % 0.5 % (0.0-1.0); EOS # 0.1 10^3/uL (0.0-0.5); EOS % 1.2 % (0.0-3.0); HEMOGLOBIN 15.1 g/dl (13.5-17.5); LYMPH # 2.2 10^3/uL (1.5-5.0); LYMPH % 22.2 % (24.0-44.0); MEAN CORPUSCULAR HEMOGLOBIN 31.4 pg (27.0-33.0); MEAN CORPUSCULAR HGB CONC 33.6 g/dl (32.0-36.5); MEAN CORPUSCULAR VOLUME 93.6 fl (80.0-96.0); MONO # 0.6 10^3/uL (0.0-0.8); MONO % 6.4 % (2.0-8.0); NEUTROPHILS # 6.7 10^3/uL (1.5-8.5); NEUTROPHILS % 69.4 % (36.0-66.0); PLATELET COUNT, AUTOMATED 248 10^3/uL (150-450); RED BLOOD COUNT 4.81 10^6/uL (4.30-6.10); WHITE BLOOD COUNT 9.7 10^3/uL (4.0-10.0)
[2024-01-27 12:18] LABS: PSA SCREENING 0.38 NG/ML (< 4.00)
[2024-01-27 12:20] LABS: ALBUMIN 3.9 G/DL (3.2-5.2); ALKALINE PHOSPHATASE 93 U/L (46-116); ALT/SGPT 25 U/L (7.0-40); AST/SGOT 11 U/L (<34); BILIRUBIN,TOTAL 1.3 MG/DL (0.3-1.2); BLOOD UREA NITROGEN 13 MG/DL (9-23); CALCIUM LEVEL 9.9 MG/DL (8.5-10.1); CARBON DIOXIDE LEVEL 28 MMOL/L (20-31); CHLORIDE LEVEL 109 MMOL/L (98-107); GLOMERULAR FILTRATION RATE > 60.0 (>56); GLUCOSE, FASTING 94 MG/DL (60-100); POTASSIUM SERUM 4.3 MMOL/L (3.5-5.1); SODIUM LEVEL 141 MMOL/L (136-145); TOTAL PROTEIN 6.9 G/DL (5.7-8.2)
[2024-01-27 12:22] LABS: FERRITIN 181.3 NG/ML (10.5-307.3)
[2024-01-27 12:44] LABS: HEMOGLOBIN A1c 5.3 % (4.0-6.0)
== END ==
LOC: M PLALAB 08:04
PROVIDERS: ATTEND Family Medicine
DX: R73.01 Impaired fasting glucose (principal); I10 Essential (primary) hypertension; D75.89 Other specified diseases of blood and blood-forming organs; Z12.5 Encounter for screening for malignant neoplasm of prostate
CPT/HCPCS: 36415; 80053; 82728; 83036; 83525; 83880; 85025; G0103

== ENCOUNTER → 2024-09-02 | Outpatient (CLI) | payer BC ==
[2024-09-02 11:46] LABS: BASO # 0.1 10^3/uL (0.0-0.2); BASO % 0.8 % (0.0-1.0); EOS # 0.1 10^3/uL (0.0-0.5); EOS % 1.3 % (0.0-3.0); HEMATOCRIT 45.7 % (42.0-52.0); HEMOGLOBIN 15.3 g/dl (13.5-17.5); LYMPH # 1.9 10^3/uL (1.5-5.0); LYMPH % 25.4 % (24.0-44.0); MEAN CORPUSCULAR HEMOGLOBIN 31.4 pg (27.0-33.0); MEAN CORPUSCULAR HGB CONC 33.5 g/dl (32.0-36.5); MEAN CORPUSCULAR VOLUME 93.6 fl (80.0-96.0); MONO # 0.6 10^3/uL (0.0-0.8); MONO % 7.4 % (2.0-8.0); NEUTROPHILS # 4.9 10^3/uL (1.5-8.5); NEUTROPHILS % 64.8 % (36.0-66.0); PLATELET COUNT, AUTOMATED 229 10^3/uL (150-450); RED BLOOD COUNT 4.88 10^6/uL (4.30-6.10); WHITE BLOOD COUNT 7.6 10^3/uL (4.0-10.0)
[2024-09-02 11:58] LABS: HEMOGLOBIN A1c 5.3 % (4.0-6.0)
[2024-09-02 12:16] LABS: FERRITIN 144.5 NG/ML (10.5-307.3); TOTAL 25(OH) VITAMIN D 38.7 NG/ML (20.0-100.0)
[2024-09-02 12:17] LABS: ALBUMIN 3.9 G/DL (3.2-5.2); ALKALINE PHOSPHATASE 85 U/L (40-129); ALT/SGPT 30 U/L (7.0-40); AST/SGOT 14 U/L (<34); BILIRUBIN,TOTAL 0.9 MG/DL (0.3-1.2); BLOOD UREA NITROGEN 12 MG/DL (9-23); CALCIUM LEVEL 9.3 MG/DL (8.3-10.6); CARBON DIOXIDE LEVEL 27 MMOL/L (20-31); CHLORIDE LEVEL 106 MMOL/L (98-107); CREATININE FOR GFR 0.87 MG/DL (0.70-1.30); GLOMERULAR FILTRATION RATE > 90.0 (>49); GLUCOSE, FASTING 95 MG/DL (74-106); POTASSIUM SERUM 4.4 MMOL/L (3.5-5.1); PTH INTACT 28.5 PG/ML (18.5-88.0); SODIUM LEVEL 143 MMOL/L (136-145); TOTAL PROTEIN 6.9 G/DL (5.7-8.2)
[2024-09-02 12:19] LABS: VITAMIN B12 LEVEL 440 PG/ML (211-911)
== END ==
LOC: M PLALAB 08:10
PROVIDERS: ATTEND Family Medicine
DX: D75.89 Other specified diseases of blood and blood-forming organs (principal); R73.01 Impaired fasting glucose; I10 Essential (primary) hypertension; E55.9 Vitamin D deficiency, unspecified

== ENCOUNTER → 2025-02-01 | Outpatient (CLI) | payer BC ==
[2025-02-01 10:40] LABS: BASO # 0.0 10^3/uL (0.0-0.2); BASO % 0.6 % (0.0-1.0); EOS # 0.1 10^3/uL (0.0-0.5); EOS % 1.3 % (0.0-3.0); LYMPH # 2.1 10^3/uL (1.5-5.0); LYMPH % 29.7 % (24.0-44.0); MONO # 0.6 10^3/uL (0.0-0.8); MONO % 8.0 % (2.0-8.0); NEUTROPHILS # 4.2 10^3/uL (1.5-8.5); NEUTROPHILS % 60.1 % (36.0-66.0); PLATELET COUNT, AUTOMATED 221 10^3/uL (150-450)
[2025-02-01 10:43] LABS: PSA SCREENING 0.32 NG/ML (< 4.00)
[2025-02-01 10:47] LABS: VITAMIN B12 LEVEL 348 PG/ML (211-911)
[2025-02-01 10:48] LABS: ALT/SGPT 24 U/L (7.0-40); AST/SGOT 17 U/L (<34); CALCIUM LEVEL 8.9 MG/DL (8.3-10.6); CARBON DIOXIDE LEVEL 26 MMOL/L (20-31); CHLORIDE LEVEL 108 MMOL/L (98-107); CHOLESTEROL LEVEL 156 MG/DL (<200); CHOLESTEROL RISK RATIO 3.26 (<5); CREATININE FOR GFR 0.88 MG/DL (0.70-1.30); GLOMERULAR FILTRATION RATE > 90.0 (>49); LDL CHOLESTEROL 83.0 MG/DL (<100); NON-HDL-C 108.2 MG/DL; POTASSIUM SERUM 4.3 MMOL/L (3.5-5.1); PTH INTACT 27.7 PG/ML (18.5-88.0); SODIUM LEVEL 141 MMOL/L (136-145); TOTAL 25(OH) VITAMIN D 46.1 NG/ML (20.0-100.0); TRIGLYCERIDES LEVEL 126 MG/DL (<150)
[2025-02-01 10:50] LABS: FREE T4 1.30 NG/DL (0.89-1.76)
[2025-02-01 10:58] LABS: ESTIMATED AVERAGE GLUCOSE 111.0 MG/DL (60-110)
== END ==
LOC: M PLALAB 08:09
PROVIDERS: ATTEND Family Medicine
DX: R73.01 Impaired fasting glucose (principal); D75.89 Other specified diseases of blood and blood-forming organs; E55.9 Vitamin D deficiency, unspecified; Z12.5 Encounter for screening for malignant neoplasm of prostate; I10 Essential (primary) hypertension; E78.5 Hyperlipidemia, unspecified
CPT/HCPCS: 36415; 80053; 80061; 82306; 82607; 82728; 83036; 83525; 83880; 83970; 84439; 84443; 85025; G0103

== ENCOUNTER → 2025-02-12 | Outpatient (CLI) | payer BC | LOC: M PLAIMG 15:07 | PROVIDERS: ATTEND Family Medicine | DX: M47.27 Other spondylosis with radiculopathy, lumbosacral region (principal); M51.360 Other intervertebral disc degeneration, lumbar region with discogenic back pain only ==